=== PATIENT | male | born 1935 | race Caucasian/White ===

== ENCOUNTER → 2016-11-07 | Outpatient (CLI) | payer OTHER | END | disposition home or self-care (01) | LOC: PCVCIMAG 09:45 | PROVIDERS: ATTEND Internal Medicine Cardiovascular Disease | DX: I10 Essential (primary) hypertension (principal); I65.21 Occlusion and stenosis of right carotid artery; E78.00 Pure hypercholesterolemia, unspecified; E11.9 Type 2 diabetes mellitus without complications; Z95.1 Presence of aortocoronary bypass graft | CPT/HCPCS: 93306; 93880 ==

== ENCOUNTER → 2016-11-13 | Outpatient (CLI) | payer OTHER | END | disposition home or self-care (01) | LOC: PCVCCLINIC 15:20 | PROVIDERS: ATTEND Internal Medicine Cardiovascular Disease | DX: E78.5 Hyperlipidemia, unspecified (principal); R00.2 Palpitations; E11.9 Type 2 diabetes mellitus without complications; I10 Essential (primary) hypertension; I77.9 Disorder of arteries and arterioles, unspecified; I25.10 Atherosclerotic heart disease of native coronary artery without angina pectoris; I42.9 Cardiomyopathy, unspecified; Z95.2 Presence of prosthetic heart valve | CPT/HCPCS: 80061; 93005; G0463 ==

== ENCOUNTER → 2017-05-19 | Outpatient (CLI) | payer OTHER ==
--- NOTE | 2017-05-19 14:38 | PCVCIMAG ---
EXAM: BILATERAL CAROTID DUPLEX INDICATION: Carotid Occlusive Disease. FINDINGS: Doppler Measurements (centimeters per second): RIGHT: Peak CCA-78, Peak ECA-179, Diastolic ICA-38, Peak ICA-254, ICA/CCA Ratio-3.3. LEFT: Peak CCA-97, Peak ECA-131, Diastolic ICA-10, Peak ICA-108, ICA/CCA Ratio-1.1. RIGHT CAROTID: The carotid bulb has moderately severe plaque. The proximal internal carotid artery shows 70% stenosis. The common carotid artery shows no significant stenosis. The external carotid artery shows 50% stenosis. LEFT CAROTID: The carotid bulb has mild plaque. The proximal internal carotid artery shows <40% stenosis. The common carotid artery shows no significant stenosis. The external carotid artery shows no significant stenosis. Antegrade flow in both vertebral arteries. IMPRESSION: 70% stenosis of the right internal carotid artery with moderately severe plaque. <40% stenosis of the left internal carotid artery with mild plaque. No change since October 2016. LOC:[id number]
== END | disposition home or self-care (01) ==
LOC: PCVCIMAG 13:59
PROVIDERS: ATTEND Internal Medicine Cardiovascular Disease
DX: I65.23 Occlusion and stenosis of bilateral carotid arteries (principal); I45.10 Unspecified right bundle-branch block; I49.3 Ventricular premature depolarization; I25.10 Atherosclerotic heart disease of native coronary artery without angina pectoris; I42.9 Cardiomyopathy, unspecified; I77.89 Other specified disorders of arteries and arterioles; I10 Essential (primary) hypertension; E11.9 Type 2 diabetes mellitus without complications; E78.00 Pure hypercholesterolemia, unspecified; Z95.2 Presence of prosthetic heart valve; Z79.82 Long term (current) use of aspirin; Z79.84 Long term (current) use of oral hypoglycemic drugs
CPT/HCPCS: 80061; 93005; 93880; G0463

== ENCOUNTER → 2017-12-05 | Outpatient (CLI) | payer OTHER | END | disposition home or self-care (01) | LOC: PCVCIMAG 12:52 | DX: I65.23 Occlusion and stenosis of bilateral carotid arteries (principal); E11.9 Type 2 diabetes mellitus without complications; I25.810 Atherosclerosis of coronary artery bypass graft(s) without angina pectoris; I10 Essential (primary) hypertension; I77.9 Disorder of arteries and arterioles, unspecified; E78.00 Pure hypercholesterolemia, unspecified; I25.5 Ischemic cardiomyopathy; Z95.2 Presence of prosthetic heart valve; Z79.82 Long term (current) use of aspirin; Z79.899 Other long term (current) drug therapy; Z79.84 Long term (current) use of oral hypoglycemic drugs; I35.1 Nonrheumatic aortic (valve) insufficiency | CPT/HCPCS: 80061; 93005; 93306; 93880; G0463 ==

== ENCOUNTER → 2018-07-10 | Outpatient (CLI) | payer OTHER ==
[~2018-07-10] MED LIST: REGADENOSON 0.4 MG/5 ML DISP.SYRIN. IV ONE
--- NOTE | 2018-07-10 11:17 | PCVCIMAG ---
EXAM: BILATERAL CAROTID DUPLEX INDICATION: Carotid Occlusive Disease. FINDINGS: Doppler Measurements (centimeters per second): RIGHT: Peak CCA-62, Peak ECA-309, Diastolic ICA-55, Peak ICA-288, ICA/CCA Ratio-4.7. LEFT: Peak CCA-98, Peak ECA-162, Diastolic ICA-14, Peak ICA-97, ICA/CCA Ratio-1.0. RIGHT CAROTID: The carotid bulb has moderately severe plaque. The proximal internal carotid artery shows 70% stenosis. The common carotid artery shows no significant stenosis. The external carotid artery shows 80% stenosis. LEFT CAROTID: The carotid bulb has moderate plaque. The proximal internal carotid artery shows <40% stenosis. The common carotid artery shows no significant stenosis. The external carotid artery shows 50% stenosis. Antegrade flow in both vertebral arteries. IMPRESSION: 70% stenosis of the right internal carotid artery with moderately severe plaque. <40% stenosis of the left internal carotid artery with moderate plaque. Little overall change since November 2017. LOC:[id number]
--- NOTE | 2018-07-10 16:10 | PCVCIMAG ---
APPROVED REPORT Imaging Protocol: Rest Tc-99m/Stress Tc-99m 1 day Study performed: 07/10/2018 09:15:43 Indication: CAD, ICM Patient Location: Out-Patient Stress Nurse: Carmen Lynn RN [place] Tech:Yuliana MongeCATIE díazMT Ht: 6 ft 0 in Wt: 210 lbs BSA: 2.18 m2 HR: 68 bpm BP: 125/60 mmHg BMI: 28.4 Rhythm: SR, PVC's, RBBB, Bigeminy Medical History Medical History: HTN, Hyperlipidemia, Diabetes, CAD Medications: Aspirin, carvedilol (held 24h), losartan, coq10, lovastatin, omeprazole Allergies: No known drug allergies Previous Cardiac Procedures: CABG Pretest Chest Pain Characteristics: No chest pain Resting Data Rest SPECT myocardial perfusion imaging was performed in supine position 45 minutes following the intravenous injection of 10.1 mCi of Tc-99m Sestamibi. Time of rest injection: 914 Date: 07/10/2018 Administration Route: IV Administration Site: Right AC Pharmacologic Stress Pharmacologic stress test was performed by injecting Regadenoson 0.4 mg IV push over 10-15 seconds immediately followed by the intravenous injection of 34.6 mCi of Tc-99m Sestamibi. Time of stress injection: 1029 Date: 07/10/2018 Administration Route: IV Administration Site: Right AC Gated Stress SPECT was performed 45 minutes after stress injection. The images were gated to evaluate regional wall motion and calculate left ventricular ejection fraction. Comments Prior Nuclear Stress Test 2016 - Ischemic Stress Test Details Stress Test: Pharmacologic stress testing performed using 0.4 mg of regadenoson per 5 mL given IV over 10 seconds. Reason for pharmacologic stress test: physical limitation. HRMax Heart Rate (APMHR): 138 bpm Resting HR: 68 bpmTarget HR (85% APMHR): 117 bpm Max HR Achieved: 89 bpm % of APMHR: 64 Recovery HR: 82 bpm BP Resting BP: 125/60 mmHg Recovery BP: 148/74 mmHg ECG Resting ECG: SR with PVCs/ bigeminy & R BBB Stress ECG: SR with R BBB Recovery ECG: SR with R BBB Clinical Reason for Termination: Completed protocol Stress Symptoms: Dyspnea Exercise duration: 0 min 55 sec Symptoms resolved with caffeine. Stress ECG Conclusion ECG: Non-ischemic Study Data Post stress, the left ventricular ejection was 42%.. SSS: 3 SRS: 1 SDS: 2 TID = 0.91. Perfusion Medium sized area of moderate reversible ischemia involving the mid/basal inferolateral left ventricle consistent with known circumflex occlusion. Wall Motion Mildly decreased left ventricular systolic function. Nuclear Conclusion Medium sized area of moderate reversible ischemia involving the mid/basal inferolateral left ventricle consistent with known circumflex occlusion. Post stress, the left ventricular ejection was 42%. No change since prior study dated October 2015. Interpreted by: Omar Arteaga MD Electronically Approved: 07/10/2018 16:08:41 <Conclusion> ECG: Non-ischemic
== END | disposition home or self-care (01) ==
LOC: PCVCIMAG 14:10
PROVIDERS: ATTEND Internal Medicine Cardiovascular Disease
DX: I65.23 Occlusion and stenosis of bilateral carotid arteries (principal); I25.10 Atherosclerotic heart disease of native coronary artery without angina pectoris; E11.9 Type 2 diabetes mellitus without complications; I10 Essential (primary) hypertension
CPT/HCPCS: 78452; 93017; 93880; A9500; J2785

== ENCOUNTER → 2019-01-04 | Outpatient (CLI) | payer OTHER ==
--- NOTE | 2019-01-04 16:32 | PCVCIMAG ---
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 2D Dimensions IVSd: 11.16 (7-11mm)LVOT Diam: 25.05 (18-24mm) LVDd: 57.98 mm PWd: 10.77 (7-11mm)Ascending Ao: 34.54 (22-36mm) LVDs: 51.31 (25-40mm) Left Atrium: 42.22 (27-40mm) Aortic Root: 34.69 mm LV Single Plane 4CH: 38.86 % LV Single Plane 2CH: 38.47 % Biplane EF: 37.0 % Volumes Left Atrial Volume (Systole) Single Plane 4CH: 96.55 mLSingle Plane 2CH: 108.57 mL LA ESV Index: 48.00 mL/m2 Aortic Valve AoV Peak Sami.: 2.91 m/s AO Peak Gr.: 33.82 mmHgLVOT Max P.42 mmHg AO Mean Gr.: 16.96 mmHgLVOT Mean P.89 mmHg AO V2 Mean: 1.94 m/sLVOT Max V: 0.92 m/s AO V2 VTI: 65.77 cmLVOT Mean V: 0.65 m/s DOUGIE (VTI): 1.51 et1USMV V1 VTI: 20.13 cm DOUGIE Vmax: 1.57 cm2 AI Vmax: 4.73 m/sSV (LVOT): 99.14 mL AI Isabela: 3.14 m/s2 AI PHT: 436.80 ms Mitral Valve E/A Ratio: 2.1 MV Decel. Time: 239.73 ms MV E Max Sami.: 0.75 m/s MV A Sami.: 0.35 m/s IVRT: 117.65 ms Pulmonary Valve PV Peak Sami.: 0.96 m/sPV Peak Gr.: 3.69 mmHg Pulmonary Vein P Vein S: 0.28 m/sP Vein A: 0.39 m/s P Vein D: 0.85 m/sP Vein A Dur.: 193.8 msec P Vein S/D Ratio: 0.33 Tricuspid Valve TR Peak Saim.: 3.03 m/s TR Peak Gr.: 36.77 mmHg TV Vmax: 0.43 m/s Left Ventricle Left ventricle is mildly dilated. There is normal LV segmental wall motion. There is normal left ventricular wall thickness. Left ventricular systolic function is mild to moderately decreased.worse inf lateral LVEF is 40%. Grade II - pseudonormal filling dynamics. Right Ventricle The right ventricle is normal size. The right ventricular systolic function is normal. Atria Left atrium is moderately-severely dilated. Right atrium is moderately-severely dilated. Aortic Valve Normally functioning #25 bioprosthetic Medtronic AVR. Mild aortic regurgitation. There is mild valvular aortic stenosis. Calculated aortic valve area is 1.6 cm2 with maximum pressure gradient of 34 mmHg and mean pressure gradient of 17 mmHg. Mitral Valve The mitral valve is normal in structure. Mild mitral regurgitation. No evidence of mitral valve stenosis. Tricuspid Valve The tricuspid valve is normal in structure. Mild to moderate tricuspid regurgitation with PAP of 43 mmHg. Pulmonic Valve The pulmonary valve is normal in structure. Mild to moderate pulmonic regurgitation. Great Vessels The aortic root is normal in size. IVC is normal in size and collapses >50% with inspiration. Pericardium There is no pericardial effusion. There is no pleural effusion. <Conclusion> Left ventricle is mildly dilated. Left ventricular systolic function is mild to moderately decreased.worse inf lateral LVEF is 40%. Grade II - pseudonormal filling dynamics. The right ventricle is normal size. Left atrium is moderately-severely dilated. Right atrium is moderately-severely dilated. Normally functioning #25 bioprosthetic Medtronic AVR. Mild aortic regurgitation. There is mild valvular aortic stenosis. Calculated aortic valve area is 1.6 cm2 with maximum pressure gradient of 34 mmHg and mean pressure gradient of 17 mmHg. Mild mitral regurgitation. Mild to moderate tricuspid regurgitation with PAP of 43 mmHg. Mild to moderate pulmonic regurgitation. The aortic root is normal in size. There is no pericardial effusion.
== END | disposition home or self-care (01) ==
LOC: PCVCIMAG 13:08
PROVIDERS: ATTEND Internal Medicine Cardiovascular Disease
DX: I65.23 Occlusion and stenosis of bilateral carotid arteries (principal); I25.10 Atherosclerotic heart disease of native coronary artery without angina pectoris; I25.5 Ischemic cardiomyopathy; I10 Essential (primary) hypertension; E11.9 Type 2 diabetes mellitus without complications; E78.5 Hyperlipidemia, unspecified; Z95.2 Presence of prosthetic heart valve
CPT/HCPCS: 93306; 93880

== ENCOUNTER → 2019-01-11 | Outpatient (CLI) | payer OTHER | END | disposition home or self-care (01) | LOC: PCVCCLINIC 10:30 | PROVIDERS: ATTEND Internal Medicine Cardiovascular Disease | DX: Z51.81 Encounter for therapeutic drug level monitoring (principal); I10 Essential (primary) hypertension; E78.00 Pure hypercholesterolemia, unspecified; Z79.01 Long term (current) use of anticoagulants | CPT/HCPCS: 36415 ==

== ENCOUNTER → 2019-04-30 | Outpatient (CLI) | payer OTHER ==
--- NOTE | 2019-04-30 12:03 | PCVCIMAG ---
APPROVED REPORT Indications Stenosis Dizziness and Vertigo Risk Factors Hypertension: Hyperlipidemia Diabetes, CAD Surgery/Intervention Endarterectomy: right Doppler Spectral Velocity Analysis PSV / EDVPSV / EDV ECA (R) 128 / 4 cm/sECA (L) 126 / 3 cm/s dICA (R) 62 / 12 cm/sdICA (L) 73 / 16 cm/s Errol (R) 52 / 8 cm/smICA (L) 68 / 12 cm/s pICA (R) 85 / 8 cm/spICA (L) 84 / 11 cm/s Bulb (R) 42 / 5 cm/sBulb (L) 49 / 8 cm/s dCCA (R) 82 / 12 cm/sdCCA (L) 93 / 8 cm/s mCCA (R) 81 / 4 cm/smCCA (L) 105 / 4 cm/s Vert (R) 15 / 7 cm/sVert (L) 43 / 9 cm/s ICA/CCA 1.04ICA/CCA 0.90 Basic Measurements Blood Pressure: Pulses: Right Left RightLeft Brachial(Sitting) 112/91wmMc163/56mmHgTemporal Real Time B-Mode Imaging Vert. (R)AntegradeVert. (L)Antegrade Findings The right carotid bulb has minimal plaque. The right proximal internal carotid artery shows no significant stenosis, changes of carotid endarterectomy. The right common carotid artery shows no significant stenosis. The right external carotid artery shows no significant stenosis. The left carotid bulb has moderate calcified plaque. The left proximal internal carotid artery shows <40% stenosis. The left common carotid artery shows <40% stenosis. The left external carotid artery shows no significant stenosis. Conclusion 1. Right internal carotid artery plaquing without significant stenosis; prior right carotid endarterectomy. 2. Left internal and common carotid artery stenoses (<40%) 3. Antegrade vertebral flow
== END | disposition home or self-care (01) ==
LOC: PCVCIMAG 10:57
PROVIDERS: ATTEND Internal Medicine Cardiovascular Disease
DX: I65.23 Occlusion and stenosis of bilateral carotid arteries (principal); E78.5 Hyperlipidemia, unspecified; E11.9 Type 2 diabetes mellitus without complications; I25.10 Atherosclerotic heart disease of native coronary artery without angina pectoris; Z98.890 Other specified postprocedural states
CPT/HCPCS: 93880

== ENCOUNTER → 2019-04-30 | Outpatient (CLI) | payer OTHER | END | disposition home or self-care (01) | LOC: PCVCCLINIC 10:00 | PROVIDERS: ATTEND Internal Medicine Cardiovascular Disease | DX: I25.10 Atherosclerotic heart disease of native coronary artery without angina pectoris (principal); E78.00 Pure hypercholesterolemia, unspecified; I25.5 Ischemic cardiomyopathy; I65.23 Occlusion and stenosis of bilateral carotid arteries; I10 Essential (primary) hypertension; Z95.2 Presence of prosthetic heart valve; E78.5 Hyperlipidemia, unspecified | CPT/HCPCS: 36415; 80061; 93005; G0463 ==